=== PATIENT | female | born 1990 | race African-American/Black ===

== ENCOUNTER 2019-09-23 20:25 | Inpatient (IN) | payer MEDICAID, OTHER ==
[~2019-09-23] VITALS: Ht 152.4 cm; Wt 61.2 kg
[2019-09-23] MEDS: DEXT 5%/LR + PITOCIN 20UNITS/L 1,000 ML IV SCH (00:17)
[2019-09-23] MEDS: LACTATED RINGERS 1,000 ML IV SCH (20:45)
[2019-09-23] MEDS ORDERED: CARBOPROST TROMETHAMINE 250 MCG/ML AMPUL IM PRN (21:00)
[2019-09-23] MEDS ORDERED: AMPICILLIN 2,000 MG in SODIUM CHLORIDE 0.9% 100 ML IV NR (21:10)
[2019-09-23] MEDS ORDERED: MAGNESIUM 4 G PREMIX 100 ML IV NR (21:11)
[2019-09-23] MEDS ORDERED: MAGNESIUM 20 G PREMIX (L & D) 500 ML IV SCH (21:30)
[2019-09-23] MEDS ORDERED: MAGNESIUM SULFATE 20 GM in DEXT 5% WATER 460 ML IV SCH (21:30)
[2019-09-23 21:33] LABS: BASOPHILS % 0.3 % (0.0-2.0); EOSINOPHILS % 0.4 % (0.0-5.0); HEMATOCRIT. 35.1 % (36.0-48.0); HEMOGLOBIN. 12.1 g/dL (12.0-16.0); LYMPHOCYTES % 17.8 % (20.0-50.0); MEAN CORPUSCULAR HEMOGLOBIN 32.5 pg (28.0-32.0); MEAN CORPUSCULAR VOLUME 94.3 fL (81.0-99.0); MEAN PLATELET VOLUME 7.3 fl (7.4-10.4); NEUTROPHILS % 71.5 % (40.0-76.0); PLATELET 340 x1000/uL (130-400); RED BLOOD CELL COUNT 3.72 mill/uL (4.2-5.4); RED CELL DISTRIBUTION WIDTH 13.9 % (11.6-14.6)
[2019-09-23 21:34] LABS: CLARITY URINE CLEAR (CLEAR); COLOR URINE YELLOW (YELLOW); KETONES URINE TRACE (NEGATIVE); LEUKOCYTE ESTERASE URINE NEGATIVE (NEGATIVE); NITRITE URINE NEGATIVE (NEGATIVE); OCCULT BLOOD URINE TRACE (NEGATIVE); PH URINE 7.5 (4.5-8.0); PROTEIN URINE 1+ (NEGATIVE)
[2019-09-23] MEDS ORDERED: BETAMETHASONE ACET/BETAMET 30 MG/5 ML VIAL IM SCH (21:38)
[2019-09-23 21:43] LABS: INR 0.9; PARTIAL THROMBOPLASTIN TIME 31.8 sec (23.4-31.0)
[2019-09-23 21:49] LABS: *AMPHETAMINES SCREEN URINE NEGATIVE (NEGATIVE); *BARBITURATES SCREEN URINE NEGATIVE (NEGATIVE); *BENZODIAZEPINES SCREEN URINE NEGATIVE (NEGATIVE); *COCAINE SCREEN URINE NEGATIVE (NEGATIVE)
[2019-09-23 21:51] LABS: METHADONE URINE SCREEN NEGATIVE (NEGATIVE); OPIATES URINE SCREEN NEGATIVE (NEGATIVE); PHENCYCLIDINE URINE SCREEN NEGATIVE (NEGATIVE)
[2019-09-23 21:53] LABS: CANNABINOID URINE SCREEN PRESUMTIVE POSITIVE (NEGATIVE)
[2019-09-23] MEDS ORDERED: AZITHROMYCIN 500 MG in DEXT 5% WATER 250 ML IV SCH (22:00)
[2019-09-23 22:18] LABS: HEPATITIS B SURFACE ANTIGEN NEGATIVE
[2019-09-23] MEDS ORDERED: ROPIVACAINE HCL/PF EPIDURAL 200 ML EPI SCH (22:26)
[2019-09-24] MEDS ORDERED: DEXT 5%/LR + PITOCIN 20UNITS/L 1,000 ML IV SCH (01:22)
[2019-09-24] MEDS: DEXT 5%/LR + PITOCIN 20UNITS/L 1,000 ML IV SCH (01:26)
[2019-09-24] MEDS ORDERED: AMPICILLIN 2,000 MG in SODIUM CHLORIDE 0.9% 100 ML IV SCH (01:30)
[2019-09-24] MEDS ORDERED: BISACODYL 10MG SUPP PR PRN (01:30)
[2019-09-24] MEDS ORDERED: ACETAMINOPHEN WITH CODEINE 300/30MG TABLET PO PRN (01:30)
[2019-09-24] MEDS ORDERED: IBUPROFEN 400MG TABLET PO PRN (01:30)
[2019-09-24] MEDS ORDERED: HEMORRHOIDAL SUPP PR PRN (01:30)
[2019-09-24] MEDS ORDERED: LANOLIN OINT 7GM TUBE TOP PRN (01:30)
[2019-09-24 03:40] VITALS: BP 109/67
[2019-09-24] MEDS: AMPICILLIN 2,000 MG in SODIUM CHLORIDE 0.9% 100 ML IV SCH ×3 (04:44→18:33)
[2019-09-24] MEDS: GENTAMICIN 80MG PREMIX 100 ML IV SCH ×2 (06:30→14:55)
[2019-09-24 08:00] VITALS: BP 105/70
[2019-09-24] MEDS: IBUPROFEN 800MG TABLET PO PRN (08:00)
[2019-09-24] MEDS: PRENATAL VIT/FE FUMARATE/FA TABLET PO SCH (09:00)
[2019-09-24 16:00] VITALS: BP 95/58
[2019-09-24 16:03] LABS: CHLORIDE 106 mEq/L (98-107)
[2019-09-24 20:00] VITALS: BP 95/58
[2019-09-24] MEDS: DOCUSATE SODIUM 100MG CAPSULE PO SCH (21:00)
[2019-09-25] MEDS: GENTAMICIN 80MG PREMIX 100 ML IV SCH ×4 (00:04→23:57)
[2019-09-25] MEDS: DIPHENHYDRAMINE 25MG CAPSULE PO PRN (00:05)
[2019-09-25] MEDS: IBUPROFEN 800MG TABLET PO PRN ×2 (00:06→21:03)
[2019-09-25] MEDS: AMPICILLIN 2,000 MG in SODIUM CHLORIDE 0.9% 100 ML IV SCH ×4 (01:54→22:41)
[2019-09-25 04:00] VITALS: BP 94/55
[2019-09-25 06:41] LABS: CHLORIDE 111 mEq/L (98-107)
[2019-09-25 06:42] LABS: HEMATOCRIT. 32.5 % (36.0-48.0); HEMOGLOBIN. 10.9 g/dL (12.0-16.0); MEAN CORPUSCULAR VOLUME 95.6 fL (81.0-99.0); MEAN PLATELET VOLUME 7.2 fl (7.4-10.4); PLATELET 366 x1000/uL (130-400); RED CELL DISTRIBUTION WIDTH 14.7 % (11.6-14.6)
[2019-09-25] MEDS ORDERED: GENTAMICIN 80MG PREMIX 100 ML IV SCH (07:15)
[2019-09-25 07:59] VITALS: BP 108/71
[2019-09-25] MEDS: FERROUS SULFATE 325MG TABLET PO SCH ×3 (08:41→18:34)
[2019-09-25] MEDS: PRENATAL VIT/FE FUMARATE/FA TABLET PO SCH (08:41)
[2019-09-25] MEDS: CLINDAMYCIN 900 MG PREMIX 50 ML IV SCH ×2 (10:21→18:33)
[2019-09-25 13:52] LABS: PLATELET ESTIMATE NORMAL
[2019-09-25 16:00] VITALS: BP 112/70
[2019-09-25 20:00] VITALS: BP 98/66
[2019-09-25] MEDS: DOCUSATE SODIUM 100MG CAPSULE PO SCH (21:00)
[2019-09-26] MEDS: DIPHENHYDRAMINE 25MG CAPSULE PO PRN (00:22)
[2019-09-26] MEDS: CLINDAMYCIN 900 MG PREMIX 50 ML IV SCH ×4 (02:00→18:26)
[2019-09-26] MEDS: AMPICILLIN 2,000 MG in SODIUM CHLORIDE 0.9% 100 ML IV SCH ×3 (04:52→21:21)
[2019-09-26 04:55] VITALS: BP 97/66
[2019-09-26 06:31] LABS: HEMATOCRIT. 32.6 % (36.0-48.0); HEMOGLOBIN. 11.2 g/dL (12.0-16.0); MEAN CORPUSCULAR HEMOGLOBIN 32.4 pg (28.0-32.0); MEAN CORPUSCULAR VOLUME 94.5 fL (81.0-99.0); MEAN PLATELET VOLUME 6.9 fl (7.4-10.4); PLATELET 392 x1000/uL (130-400); RED BLOOD CELL COUNT 3.45 mill/uL (4.2-5.4); RED CELL DISTRIBUTION WIDTH 14.2 % (11.6-14.6)
[2019-09-26 06:51] LABS: CHLORIDE 109 mEq/L (98-107)
[2019-09-26] MEDS: GENTAMICIN 80MG PREMIX 100 ML IV SCH ×3 (07:53→23:01)
[2019-09-26 08:00] VITALS: BP 98/60
[2019-09-26 09:10] LABS: PLATELET ESTIMATE NORMAL
[2019-09-26 16:00] VITALS: BP 103/69
[2019-09-26] MEDS: FERROUS SULFATE 325MG TABLET PO SCH (18:26)
[2019-09-26] MEDS: PRENATAL VIT/FE FUMARATE/FA TABLET PO SCH (18:27)
[2019-09-26] MEDS: DOCUSATE SODIUM 100MG CAPSULE PO SCH (21:00)
[2019-09-26 22:00] VITALS: BP 99/65
[2019-09-27] MEDS: AMPICILLIN 2,000 MG in SODIUM CHLORIDE 0.9% 100 ML IV SCH ×2 (04:00→10:00)
[2019-09-27 05:43] VITALS: BP 93/65
[2019-09-27 06:52] LABS: HEMATOCRIT. 34.5 % (36.0-48.0); HEMOGLOBIN. 11.9 g/dL (12.0-16.0); MEAN CORPUSCULAR HEMOGLOBIN 32.3 pg (28.0-32.0); MEAN CORPUSCULAR VOLUME 93.5 fL (81.0-99.0); MEAN PLATELET VOLUME 6.6 fl (7.4-10.4); PLATELET 449 x1000/uL (130-400); RED BLOOD CELL COUNT 3.69 mill/uL (4.2-5.4); RED CELL DISTRIBUTION WIDTH 14.1 % (11.6-14.6)
[2019-09-27] MEDS: GENTAMICIN 80MG PREMIX 100 ML IV SCH (06:55)
[2019-09-27 07:28] VITALS: BP 92/63
[2019-09-27] MEDS: FERROUS SULFATE 325MG TABLET PO SCH (08:23)
[2019-09-27] MEDS: IBUPROFEN 800MG TABLET PO PRN (08:23)
[2019-09-27] MEDS: PRENATAL VIT/FE FUMARATE/FA TABLET PO SCH (08:23)
[2019-09-27] MEDS: CLINDAMYCIN 900 MG PREMIX 50 ML IV SCH (11:22)
[2019-09-27 19:25] LABS: PLATELET ESTIMATE INCREASED
[2019-09-28 09:09] LABS: CANNABINOID CONFIRMATION URINE Positive (.)
== END 2019-09-27 15:30 | disposition home or self-care (01) | DRG 560 ==
LOC: 8 EST LDRP 20:25 → INTOOBSV 20:25 → OBSVTOIN 20:25 → 8EST 09-24 03:20
PROVIDERS: ADMIT Specialist; ATTEND Specialist
PROC: 10E0XZZ Delivery of Products of Conception, External Approach (ICD-10-PCS; principal; 2019-09-24)
PROC: 3E0R3BZ Introduction of Anesthetic Agent into Spinal Canal, Percutaneous Approach (ICD-10-PCS; 2019-09-24)
PROC: 00HU33Z Insertion of Infusion Device into Spinal Canal, Percutaneous Approach (ICD-10-PCS; 2019-09-24)
DX: O42.913 Preterm premature rupture of membranes, unspecified as to length of time between rupture and onset of labor, third trimester (principal); O99.12 Other diseases of the blood and blood-forming organs and certain disorders involving the immune mechanism complicating childbirth; O99.324 Drug use complicating childbirth; F12.90 Cannabis use, unspecified, uncomplicated; O76 Abnormality in fetal heart rate and rhythm complicating labor and delivery; D72.829 Elevated white blood cell count, unspecified; Z3A.29 29 weeks gestation of pregnancy; Z37.0 Single live birth
CPT/HCPCS: 36415; 59412; 76805; 76818; 80048; 80170; 80305; 80349; 81003; 83735; 85025; 86592; 86703; 86762; 86850; 86900; 87340; 88307; 99281; G0378; J0290; J0456; J0702; J1580; J2590; J2795; J3475; J3490; J7050; J7060; J7120; Q0163

== ENCOUNTER 2020-07-22 18:05 | Observation (INO) | payer MEDICAID, OTHER ==
[2020-07-22] MEDS ORDERED: FERR236T3 MT (19:21)
[2020-07-22] MEDS ORDERED: PREN-15 PO (19:21)
== END 2020-07-22 19:40 | disposition home or self-care (01) ==
LOC: 8 EST LDRP 18:05
PROVIDERS: ADMIT Obstetrics & Gynecology; ATTEND Obstetrics & Gynecology
DX: O26.893 Other specified pregnancy related conditions, third trimester (principal); K46.9 Unspecified abdominal hernia without obstruction or gangrene; R10.9 Unspecified abdominal pain; Z3A.31 31 weeks gestation of pregnancy
CPT/HCPCS: 59025; G0378; 99281